=== PATIENT | male | born 1950 ===

== ENCOUNTER 2018-12-11 05:24 | Day surgery (SDC) | payer MEDICARE, OTHER ==
[2018-12-11] VITALS (10 sets, daily range): BP systolic 110–130; BP diastolic 68–77
[~2018-12-11] VITALS: Ht 170.2 cm; Wt 69.2 kg
[2018-12-11] MEDS: Tropicamide 1% Opth 15ml Soln RIGHT EYE SCH ×3 (05:48→06:06)
[2018-12-11] MEDS: Akten 3.5% 1ml Btl RIGHT EYE SCH ×3 (05:48→06:06)
[2018-12-11] MEDS: Phenylephrine 10% Opth Soln 5ml RIGHT EYE SCH ×3 (05:48→06:06)
[2018-12-11] MEDS: Diclofenac Sod 0.1% Op Soln RIGHT EYE SCH ×3 (05:48→06:06)
[2018-12-11] MEDS: Vigamox Opth Soln 3ml RIGHT EYE SCH ×3 (05:48→06:06)
[2018-12-11] MEDS ORDERED: acetaZOLAMIDE 125mg tab ORAL ONE (06:00)
[2018-12-11] MEDS ORDERED: JANUVIA100 MG ORAL (06:26)
[2018-12-11] MEDS ORDERED: CRESTOR10 M1 ORAL (06:26)
[2018-12-11] MEDS ORDERED: PRADAXA110 MG PO (06:26)
[2018-12-11] MEDS ORDERED: GLIPIZIDE-METF1 EAC2 PO (06:26)
[2018-12-11] MEDS ORDERED: TRIAMCINOLONE 0.1% TOPIC (06:26)
[2018-12-11] MEDS ORDERED: ACTOS30 MG ORAL (06:26)
[2018-12-11] MEDS ORDERED: PROSCAR5 MG ORAL (06:26)
[2018-12-11] MEDS ORDERED: LISINOPRIL2.5 MG ORAL (06:26)
[2018-12-11] MEDS ORDERED: VIAGRA100 MG PO (06:26)
[2018-12-11] MEDS ORDERED: VASCEPA1 GM PO (06:26)
[2018-12-11] MEDS ORDERED: VITAMIN D250000 UNI1 ORAL (06:26)
[2018-12-11] MEDS ORDERED: LR 1000ml ONE (07:00)
[2018-12-11] MEDS ORDERED: Sterile Water Irrig 1000ml IRRIG ONE (07:00)
[2018-12-11] MEDS ORDERED: NS Irrig 1000ml ONE (07:00)
[2018-12-11] MEDS ORDERED: EPINEPHrine 1mg/1ml Amp ONE (07:12)
[2018-12-11] MEDS ORDERED: BSS 15ml BTL ONE (07:13)
[2018-12-11] MEDS ORDERED: Dexamethasone 4mg/ml vial ONE (07:13)
[2018-12-11] MEDS ORDERED: Carbachol 0.01% Op Soln 1.5ml vial ONE (07:13)
[2018-12-11] MEDS ORDERED: BSS 500ml btl ONE (07:13)
[2018-12-11] MEDS ORDERED: Lidocaine 1% MPF 10mg/ml 5ml ONE (07:13)
[2018-12-11] MEDS ORDERED: Tetracaine 0.5% Opth 4ml Soln ONE (07:13)
[2018-12-11] MEDS ORDERED: Povidone-Iodine 5% opth solution ONE (07:13)
[2018-12-11] MEDS ORDERED: Sodium Hyaluronate 10 mg/ml 0.85ml ONE ×2 (07:14→08:23)
[2018-12-11] MEDS ORDERED: Propofol 200mg/20ml IV ONE (07:20)
[2018-12-11] MEDS ORDERED: Midazolam 2mg/2ml Inj ONE (07:20)
[2018-12-11] MEDS ORDERED: fentaNYL 100 mcg/2 mL IV ONE (07:20)
[2018-12-11] MEDS ORDERED: LR 1000ml 1,000 ML IVLG SCH (07:34)
--- NOTE | 2018-12-11 07:34 | Anethesia Preoperative Eval ---
Anesthesia Pre-op PMH/ROS General Date of Evaluation: Dec 11, 2018 Anesthesiologist: Donis ASA Score: ASA 2 Mallampati Score Class I : Soft palate, uvula, fauces, pillars visible Class II: Soft palate, uvula, fauces visible Class III: Soft palate, base of uvula visible Class IV: Only hard plate visible Mallampati Classification: Class II Surgeon: Calin Diagnosis: Right cataract Surgical Procedure: Right cataract extractuib with iol Anesthesia History: none Family History: no anesthesia problems Allergies: Coded Allergies: No Known Allergies (Unverified , 12/11/18) Medications: see eMAR Patient NPO?: Yes NPO Date: Dec 10, 2018 NPO Time: 22:00 Past Medical History Cardiovascular: Reports: HTN, other - HLD; Denies: CAD, VT, valve dz, arrhythmia Pulmonary: Denies: asthma, COPD, GREGORIO, other Gastrointestinal/Genitourinary: Denies: GERD, CRI, ESRD, other Neurologic/Psychiatric: Denies: dementia, CVA, depression/anxiety, TIA, other Endocrine: Reports: DM; Denies: hypothyroidism, steroids, other HEENT: Denies: cataract (L), cataract (R), glaucoma, KLETSEL DEHE WINTUN (L), KLETSEL DEHE WINTUN (R), other Hematology/Immune: Denies: anemia, DVT, bleeding disorder, other Musculoskeletal/Integumentary: Denies: OA, RA, DJD, DDD, edema, other PSxH Narrative: Left cataract extraction with IOL Anesthesia Pre-op Phys. Exam Physician Exam Last Vital Signs Date Time Temp Pulse Resp B/P (MAP) Pulse Ox O2 Delivery O2 Flow Rate FiO2 12/11/18 05:59 Room Air 12/11/18 05:55 97.9 18 18 127/68 97 Constitutional: NAD Cardiovascular: RRR Respiratory: CTA Airway Exam Mallampati Score: Class II MO: full ROM: full Teeth: missing, intact Anesthesia Pre-op A/P Labs see chart Studies Pre-op Studies: EKG Risk Assessment & Plan Assessment: ASA II Plan: MAC Status Change Before Surgery: No Pre-Antibiotics Drug: N/A Jolene Dubose MD Dec 11, 2018 07:34
[2018-12-11] MEDS ORDERED: DiphenhydrAMINE 50mg/ml Inj IVP PRN (07:45)
--- NOTE | 2018-12-11 08:24 | Immediate Post-Op Evaluation ---
Immediate Post-Op Evalulation Immediate Post-Op Evalulation Procedure: Right cataract extraction with IOL Date of Evaluation: Dec 11, 2018 Time of Evaluation: 08:26 IV Fluids: 300 Blood Products: 0 Estimated Blood Loss: 0 Urinary Output: 0 Blood Pressure Systolic: 130 Blood Pressure Diastolic: 77 Pulse Rate: 88 Respiratory Rate: 16 O2 Sat by Pulse Oximetry: 96 Temperature (Fahrenheit): 97.7 Pain Score (1-10): 0 Nausea: No Vomiting: No Complications 0 Patient Status: awake, reacts, patent, none Hydration Status: adequate Drug: N/A Jolene Dubose MD Dec 11, 2018 08:24
--- NOTE | 2018-12-11 08:25 | 48 Hour Post Anesthesia Eval ---
Post Anesthesia Evaluation Procedure: Right cataract extraction with IOL Date of Evaluation: Dec 11, 2018 Airway: patent Nausea: No Vomiting: No Pain Intensity: 0 Hydration Status: adequate Cardiopulmonary Status: at baseline Mental Status/LOC: patient returned to baseline Post-Anesthesia Complications: 0 Follow-up care needed: ready to discharge Jolene Dubose MD Dec 11, 2018 08:25
--- NOTE | 2018-12-11 08:29 | Pre-Procedure Note/Attestation ---
Pre-Procedure Note/Attestation Complete Prior to Procedure Planned Procedure: right Procedure Narrative: 1. CATARACT EXTRACTION WITH PHACO AND PC IOL IMPLANTATION, RIGHT EYE. 2. LIMBAL RELAXING INCISION, RIGHT EYE 3.MALYUGIN RING INSERTION, RIGHT EYE FOR FLOPPY IRIS SYNDROME. 4.COMPLEX CATARACT , RIGHT EYE Indications for Procedure Pre-Operative Diagnosis: 1. CATARACT , RIGHT EYE. 2. ASTIGMATISM, RIGHT EYE. 3. FLOPPY IRIS SYNDROME, RIGHT EYE 4. COMPLEX CATARACT , RIGHT EYE Attestation I attest that I discussed the nature of the procedure; its benefits; risks and complications; and alternatives (and the risks and benefits of such alternatives ), prior to the procedure, with the patient (or the patient's legal food service sales representatives). I attest that, if there was a reasonable possibility of needing a blood transfusion, the patient (or the patient's legal food service sales representatives) was given the [facility] standardized written summary, pursuant to the [place] Blood Safety Act ([place] Health and Safety Code # 1645, as amended). I attest that I re-evaluated the patient just prior to the surgery and that there has been no change in the patient's H&P, except as documented below: Shamar Oliveira MD Dec 11, 2018 08:29
[2018-12-11] MEDS ORDERED: acetaZOLAMIDE 125mg tab ONE (08:44)
--- NOTE | 2018-12-11 09:25 | Discharge Summary ---
Discharge Summary Discharge Summary Discharge Summary DATE OF ADMISSION: 12/11/2018 DATE OF DISCHARGE:12/11/2018 REASON FOR HOSPITALIZATION: 1- cataract, right eye 2- astigmatism 3- Complex cataract SURGERY PERFORMED: 1- Cataract extraction 2- LRI 3- Complex cataract removal, right eye CONDITION IN THE HOSPITAL:The patient tolerated the surgery without complications. DISCHARGE CONDITION: The patient was stable at discharge. DISCHARGE MEDICATIONS: 1. Vigamox eye drops one drop q.i.d, OD 2. Prednisolone one drop q.i.d,OD 3. Prolensa 1 drop QD, OD POSTOPERATIVE ORDERS: The patient has to rest at home. No bending, No lifting, No watching Television tonight. POSTOPERATIVE FOLLOW UP: The patient will be followed in my office tomorrow morning at 7 o'clock. Shamar Oliveira MD Dec 11, 2018 09:25
--- NOTE | 2018-12-11 09:30 | Brief Operative Note ---
Immediate Post Operative Note Operative Note Chief Complaint: Blurry vision, difficulty driving and watching TV Pre-op Diagnosis: 1. CATARACT , RIGHT EYE. 2. ASTIGMATISM, RIGHT EYE. 3. FLOPPY IRIS SYNDROME, RIGHT EYE 4. COMPLEX CATARACT , RIGHT EYE Procedure: 1- Cataract extraction withphaco and PC IOL implantation, right eye. 2- Limbal relaxing incision ( LRI ), right eye. 3- Malyugin ring insertion for treatment floppy iris syndrome 4- Complex cataract removal, right eye. Post-op Diagnosis: same as pre-op Surgeon: Rachel Oliveira MD Roll Threader Operator: None Additional Surgeons: None Anesthesiologist: Dr. Dykes Anesthesia: MAC Specimen: none Complications: none Condition: stable Fluids: 300ml Estimated Blood Loss: none Drains: none Implant(s) used?: Yes - Monofocal IOl implanted in the right eye without complication Rachel Oliveira MD Dec 11, 2018 09:30
--- NOTE | 2018-12-12 20:15 | Operative Note - Dictated ---
DATE OF OPERATION: 12/11/2018 FACILITY: [facility]. SURGEON: Shamar Oliveira M.D. CHEMICAL DEPENDENCY NURSE: None. ANESTHESIOLOGIST: Dr. Dykes. ANESTHESIA: Monitored anesthesia care (MAC). PREOPERATIVE DIAGNOSES: 1. Cataract of the right eye. 2. Astigmatism. 3. Floppy iris syndrome. 4. Complex cataract. POSTOPERATIVE DIAGNOSES: 1. Cataract of the right eye. 2. Astigmatism. 3. Floppy iris syndrome. 4. Complex cataract. SURGERY PERFORMED: 1. Cataract extraction with phacoemulsification and posterior chamber intraocular lens implantation in the right eye. 2. Limbal relaxing incision (LRI), right eye. 3. Insertion of Malyugin ring for treatment of floppy iris syndrome. 4. Complex cataract removal. INDICATION FOR SURGERY: The patient is a 68-year-old gentleman with history of diabetes mellitus, hypertension, hypercholesterolemia, . The patient is taking the Januvia 100 mg, glipizide/metformin 5/500 mg, pioglitazone 30 mg. He is taking simvastatin and for hypertension, he is taking lisinopril 2.5 mg. He is taking also triamcinolone, Vascepa 1 g. He is taking Viagra 100 mg, lisinopril, Januvia, and Flomax. He is taking also finasteride 5 mg oral tablet. He was previously a smoker, but now he is not a smoker. He is not a drinker. He is not allergic to any medications. His vision in the right eye is 20/50 and in the left eye is 20/100. He has had cataract surgery in the left eye last year and he has some complication and history of macular edema in the left eye. He is not happy with the results of the left eye surgery that was done in other facility. Now he is complaining of blurred vision in the right eye. On examination of the right eye, the cornea is clear. Anterior chamber is clean and quiet. Pupillary reflex is normal. There is no RAPD, but the pupil is not dilated well because of using of . There is 6+ nuclear sclerosis, 3+ cortical cataract. Funduscopy revealed hard, but normal retina, periphery retina is flat, and optic disc seems normal as well. To improve his vision in the right eye, the cataract has to be removed and posterior chamber intraocular lens has to be implanted. The astigmatism has to be addressed as well. The patient has complex cataract that is to be treated with Malyugin ring as well. INFORMED CONSENT: The nature of the surgery, risks, benefits, alternatives, and potential complications were all explained in detail to the patient in his language, Farsi. The potential complications including but not limited to bleeding, infection, posterior capsular rupture, lens subluxation, flat anterior chamber, iris prolapse, uveitis, corneal edema, macular edema, endophthalmitis, retinal detachment, loss of vision, and loss of the eye were all explained in detail to the patient. The patient voiced understanding and accepted all the complications. The alternatives including accommodating lens, multifocal lens, toric lens, and conventional cataract surgery with limbal relaxing incision (LRI) for treatment of astigmatism for all explained in detail to the patient. The patient voiced understanding. The patient elected to have conventional cataract surgery with limbal relaxing incision in the right eye. Then, he signed the consent form, which is in the chart. DESCRIPTION OF SURGERY AND FINDINGS: Following that, the patient was taken to the operating room in stable condition. Lidocaine gel, Akten 3.5% were applied to the conjunctiva of the right eye. IV sedation was given by the anesthesiologist, Dr. Dykes. After adequate anesthesia and sedation had been achieved, the right eye was prepped and draped in sterile fashion for intraocular surgery. Following that, a speculum was placed in the right eye. Before the patient was taken to the operating room, the cornea was marked at 180 and 90 meridian. In the operating room, using a corneal marker and marking pen, the steep meridian of the cornea was marked. Following that, using a orlando knife with 550 micron blade, 2 parallel incisions were placed on the steep meridian of the cornea to treat the astigmatism. Following that, using a Super Sharp knife, a clear corneal side port was created. A 1% lidocaine without preservative (MPF) was injected into the anterior chamber. The viscoelastic agent, Healon, was injected into the anterior chamber. Following that, using a 2.8 mm keratome, a clear corneal temporal keratotomy was performed. Following that, a 7 mm Malyugin ring was injected into the anterior chamber. The coils of the Malyugin ring were engaged with the sphincter of the pupil to create a orlando-shaped space for safe phacoemulsification. Following that, using VisionBlue under the viscoelastic agent to stain the anterior capsule of the crystalline lens. Following that, clear fresh viscoelastic agent was injected into the anterior chamber again. Under the viscoelastic agent, an anterior capsulotomy was performed in the fashion of capsulorrhexis beautifully. Following that, the whole viscoelastic agent was removed from the anterior chamber. Following that, using balanced salt solution, hydrodissection and hydrodelineation was performed and the nucleus was freed. Following that, clear fresh viscoelastic agent was injected into the anterior chamber to protect the endothelium of the cornea. Following that, using the phacoemulsification machine in the fashion of horizontal chop, the nucleus was removed in toto. Following that, the nucleus was really hard and difficult to remove, but was removed in toto. Following that, using the irrigation aspiration unit, cortical material was removed from the capsular bag and the capsular bag was polished. Following that, the capsular bag was filled with viscoelastic agent, Healon. Following that, +20.5 diopters PCB00 foldable IOL with serial number [id number], was injected into the capsular bag. Using the Sinskey hook, the lens was manipulated and put in the proper position. Following that, the viscoelastic agent was removed from the anterior and posterior part of the lens. Following that, the anterior chamber was filled with balanced salt solution and the wound was hydrated with balanced salt solution. The wound was checked for leakage. There was no leakage. Vigamox eyedrops were applied to the conjunctiva of the right eye. The patient tolerated the surgery without complications. At the end of the surgery, the eye was patched with a clear sterile fenestrated shield. Following that, the patient was transferred to the recovery room. In the recovery room, 125 mg Diamox was given by mouth stat. Postoperative orders and directions were given to the patient. The patient will be discharged home upon stabilization. The patient will be followed in my office tomorrow morning. Shamar Oliveira M.D. DR: Jordi JOB#: [id number] CC: [email or web address]
== END 2018-12-11 09:45 | disposition home or self-care (01) ==
LOC: SUR 05:24
DX: H25.811 Combined forms of age-related cataract, right eye (principal); H52.201 Unspecified astigmatism, right eye; H21.81 Floppy iris syndrome; E11.9 Type 2 diabetes mellitus without complications; Z79.84 Long term (current) use of oral hypoglycemic drugs; E78.5 Hyperlipidemia, unspecified; E78.00 Pure hypercholesterolemia, unspecified
CPT/HCPCS: 66982; 66999; 82962; J0171; J1100; J2250; J2704; J3010; V2632; 94003; 94150